=== PATIENT | female | born 1990 | race African-American/Black ===

== ENCOUNTER 2017-01-22 03:04 | Emergency (ER) | payer SELFPAY ==
--- NOTE | 2017-01-22 03:22 | ED Physician Chart ---
ED Chief Complaint/HPI - Patient Information Date Seen:: 01/22/17 Time Seen:: 03:05 Chief Complaint:: epigastric pain History of Present Illness:: Patient developed epigastric pain 1 hour ago. No vomiting, diarrhea, dysuria, chills or fever. Allergies:: Allergies Allergy/AdvReac Type Severity Reaction Status Date / Time No Known Allergies Allergy Verified 01/22/17 03:10 Vitals:: Vital Signs - 8 hr 01/22/17 03:10 Temp 98.2 F HR 78 RR 20 BP 121/72 O2 Sat % 97 Historian:: Patient, EMS Review:: Nurse's Note Reviewed ED Review of Systems - Review of Systems General/Constitutional: No fever, No chills Skin: No skin lesions Head: No headache Eyes: No loss of vision ENT: No earache Neck: No neck pain Cardio Vascular: No chest pain Pulmonary: No SOB GI: No nausea, No vomiting, No diarrhea, Pain G/U: No dysuria Musculoskeletal: No bone or joint pain, No back pain, No muscle pain Endocrine: No polyuria, No polydipsia Hematopoietic: No bruising Allergic/Immuno: No urticaria Neurological: No syncope ED Past Medical History - Past Medical History Past Medical History: No significant medical hx Family History: None Social History: Non Smoker, No Alcohol Surgical History: None Psychiatricy History: None Medication: None ED Physical Exam - Physical Examination General/Constitutional: Well-developed, well-nourished, Alert, No distress Head: Atraumatic Eyes: Lids, conjuctiva normal, PERRL Skin: Nl inspection, No rash ENMT: External ears, nose nl, TM canals nl Neck: No nuchal rigidity Respiratory: Nl effort/Exclusion, Clear to Auscultation, No Wheeze/Rhonchi/Rales Cardio Vascular: RRR, No murmur, gallop, rubs, NL S1 S2 GI: No organomegaly, No hernia, Normal BS's, Nondistended Other GI comments:: epigastric tenderness ED Septic Shock - . Is Septic Shock (SBP<90, OR Lactate>4 mmol\L) present?: No - <6hrs of presentation: Vital Signs: Vital Signs - 8 hr 01/22/17 03:10 Temp 98.2 F HR 78 RR 20 BP 121/72 O2 Sat % 97 ED Reassessment (Disposition) - Reassessment Reassessment:: Patient refuses blood tests so will be discharged Reassessment Condition:: Unchanged - Diagnosis Diagnosis:: Abdominal pain - Aftercare/Follow up Instructions Aftercare/Follow-Up Instructions:: Refer to Discharge Instructions - Patient Disposition Discharge/Transfer:: Home Condition at Disposition:: Stable, Unchanged
== END 2017-01-22 03:48 | disposition home or self-care (01) ==
LOC: ER 03:04
DX: R10.13 Epigastric pain (principal)
CPT/HCPCS: Z7502

== ENCOUNTER 2017-02-04 03:46 | Emergency (ER) | payer SELFPAY ==
--- NOTE | 2017-02-04 05:06 | ED Physician Chart ---
ED Chief Complaint/HPI - Patient Information Date Seen:: 02/04/17 Time Seen:: 03:55 Chief Complaint:: Abdominal Pain History of Present Illness:: onset x 3 days of intermittent, crampy, shae-umbilical abdominal pain; pt denies trauma, H/As, neck pain, S/T, cough, C/P, SOB, flank pain, back pain, A/N /V/D/C, melena, hematemesis, hematochezia, fever, chills, vaginal bleeding, vaginal discharge, or urinary s/s; LNMP: 01/30/17; pt is eating regular diet and is urinating well; pt last urinated one hour [employer]; pt's abdominal pain resolved upon ER arrival Allergies:: Allergies Allergy/AdvReac Type Severity Reaction Status Date / Time No Known Allergies Allergy Verified 01/22/17 03:10 Vitals:: Vital Signs - 8 hr 02/04/17 03:57 Temp 98.3 F HR 76 RR 15 BP 122/69 O2 Sat % 97 Historian:: Patient Review:: Nurse's Note Reviewed ED Review of Systems - Review of Systems General/Constitutional: No fever, No chills, No weight loss, No weakness, No diaphoresis, No edema, No loss of appetite Skin: No skin lesions, No rash, No bruising Head: No headache, No light-headedness Eyes: No loss of vision, No pain, No diplopia ENT: No earache, No nasal drainage, No sore throat, No tinnitus Neck: No neck pain, No swelling, No thyromegaly, No stiffness, No mass noted Cardio Vascular: No chest pain, No palpitations, No PND, No orthopnea, No edema Pulmonary: No SOB, No cough, No sputum, No wheezing GI: No nausea, No vomiting, No diarrhea, Pain, No melena, No hematochezia, No constipation, No hematemesis G/U: No dysuria, No frequency, No hematuria Musculoskeletal: No bone or joint pain, No back pain, No muscle pain Endocrine: No polyuria, No polydipsia Psychiatric: No prior psych history, No depression, No anxiety, No suicidal ideation Hematopoietic: No bruising, No lymphadenopathy Allergic/Immuno: No urticaria, No angioedema Neurological: No syncope, No focal symptoms, No weakness, No paresthesia, No headache, No seizure, No dizziness, No confusion, No vertigo ED Past Medical History - Past Medical History Obtainable: Yes Past Medical History: No significant medical hx Family History: Cancer Social History: Non Smoker, No Alcohol, No Drug Use, Single Surgical History: None Psychiatricy History: None Medication: Reviewed Family Medical History - Family Member Mother History Unknown: Yes Ethnicity: Non- ED Physical Exam - Physical Examination General/Constitutional: Awake, Well-developed, well-nourished, Alert, No distress, GCS 15, Non-toxic appearing, Ambulatory Head: Atraumatic Eyes: Lids, conjuctiva normal, PERRL, EOMI Skin: Nl inspection, No rash, No skin lesions, No ecchymosis, Well hydrated, No lymphadenopathy ENMT: External ears, nose nl, TM canals nl, Nasal exam nl, Lips, teeth, gums nl , Oropharynx nl, Tonsils nl Neck: Nontender, Full ROM w/o pain, No JVD, No nuchal rigidity, No bruit, No mass, No stridor Other Neck comments:: Supple; no meningeal signs; no cervical tenderness; no bruits Respiratory: Nl effort/Exclusion, Clear to Auscultation, No Wheeze/Rhonchi/Rales Cardio Vascular: RRR, No murmur, gallop, rubs, NL S1 S2, Carotid/Femoral/Distal pulses equal bilaterally GI: No tenderness/rebounding/guarding, No organomegaly, No hernia, Normal BS's, Nondistended, No mass/bruits, No McBurney tenderness, Rectum exam nl Other GI comments:: no pulsatile masses; good BS : No CVA tenderness Other comments:: pt deferred /Pelvic Exam Extremities: No tenderness or effusion, Full ROM, normal strength in all extremities, No edema, Normal digits & nails Neuro/Psych: Alert/oriented, DTR's symmetric, Normal sensory exam, Normal motor strength, Judgement/insight normal, Mood normal, Normal gait, No focal deficits Misc: Normal back, No paraspinal tenderness ED Labs/Radiology/EKG Results - Lab Results Comments:: pt refused all laboratory tests ED Septic Shock - . Is Septic Shock (SBP<90, OR Lactate>4 mmol\L) present?: No - <6hrs of presentation: Vital Signs: Vital Signs - 8 hr 02/04/17 03:57 Temp 98.3 F HR 76 RR 15 BP 122/69 O2 Sat % 97 ED Reassessment (Disposition) - Reassessment Reassessment:: pt tolerated po fluids well in ER; pt chose to sign out AMA and refused further ER evaluation; pt is asymptomatic upon discharge Reassessment Condition:: Improved - Diagnosis Diagnosis:: Abdominal Pain-Resolved; Abdominal Pain; Gastritis; Possible ; AGE; [place]; Gastroenteritis; IBD; Colitis - Aftercare/Follow up Instructions Aftercare/Follow-Up Instructions:: Counseled pt regarding lab results/diagnosis & need follow up, Refer to Discharge Instructions, Counseled pt & family regarding lab results/diagnosis & need follow up - Patient Disposition Discharge/Transfer:: Against Medical Advice Condition at Disposition:: Stable, Improved (RTER prn if existing s/s reoccur and/or get worse and/or any other new s/s occur; ACIs given for all above Dx; Refer to [facility]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
== END 2017-02-04 04:35 | disposition left against medical advice (07) ==
LOC: ER 03:46
DX: K52.9 Noninfective gastroenteritis and colitis, unspecified (principal); N94.0 Mittelschmerz; K58.9 Irritable bowel syndrome, unspecified
CPT/HCPCS: Z7502

== ENCOUNTER 2017-03-13 16:26 | Emergency (ER) | payer SELFPAY | END 2017-03-13 19:39 | disposition left against medical advice (07) | LOC: ER 16:26 | DX: R10.9 Unspecified abdominal pain (principal) ==